=== PATIENT | male | born 1985 | race Caucasian/White ===

== ENCOUNTER 2017-11-11 14:11 | Emergency (ER) | payer MEDICAID ==
[~2017-11-11] VITALS: Ht 177.8 cm; Wt 93.0 kg
[2017-11-11 14:14] VITALS: BP 138/92; Ht 177.8 cm; Wt 93.0 kg
== END 2017-11-11 16:16 | disposition home or self-care (01) ==
LOC: ED 14:11
DX: S96.911A Strain of unspecified muscle and tendon at ankle and foot level, right foot, initial encounter (principal); X58.XXXA Exposure to other specified factors, initial encounter; Y93.89 Activity, other specified; Y92.89 Other specified places as the place of occurrence of the external cause; Y99.8 Other external cause status

== ENCOUNTER 2020-05-22 09:57 | Emergency (ER) | payer OTHER ==
[~2020-05-22] VITALS: Ht 177.8 cm; Wt 93.9 kg
[2020-05-22 10:18] VITALS: BP 137/94; Ht 177.8 cm; Wt 93.9 kg
== END 2020-05-22 11:08 | disposition home or self-care (01) ==
LOC: ED 09:57
DX: S09.8XXA Other specified injuries of head, initial encounter (principal); Y04.8XXA Assault by other bodily force, initial encounter; Y93.89 Activity, other specified; Y92.89 Other specified places as the place of occurrence of the external cause; Y99.8 Other external cause status

== ENCOUNTER 2020-08-30 11:48 | Emergency (ER) | payer OTHER, SELFPAY ==
[~2020-08-30] VITALS: Ht 172.7 cm; Wt 93.0 kg
[2020-08-30 11:50] VITALS: Ht 172.7 cm; Wt 93.0 kg
== END 2020-08-30 13:31 | disposition home or self-care (01) ==
LOC: ED 11:48
DX: J02.9 Acute pharyngitis, unspecified (principal); R07.89 Other chest pain; R05 Cough; Z20.822 Contact with and (suspected) exposure to COVID-19
CPT/HCPCS: U0003